=== PATIENT | male | born 1950 | race Caucasian/White ===

== ENCOUNTER 2022-03-03 17:29 | Inpatient (IN) | payer MEDICARE, BC ==
[2022-03-03] MEDS ORDERED: Acetaminophen 325 MG Tab PO ONE (18:42)
[2022-03-03] MEDS ORDERED: Dexamethasone 6 MG TABLET PO ONE (19:20)
[2022-03-03] MEDS ORDERED: REMDESIVIR 200 MG in Sodium Chloride 0.9% 250 ML IV ONE (19:20)
[2022-03-03] MEDS ORDERED: Acetaminophen 325 MG Tab PO PRN (22:03)
[2022-03-03] MEDS: guaiFENesin/Dextromethorphan 100-10 MG/5 ML Soln 5 ML Cup PO PRN (22:30)
[2022-03-03] MEDS: Benzocaine/Cetylpyridinium/Menthol Lozenge MUCMEM PRN (22:30)
[2022-03-04] MEDS ORDERED: Docusate Sodium 100 MG Cap PO PRN (08:03)
[2022-03-04] MEDS ORDERED: oxyCODONE 5 MG Tab PO PRN (08:03)
[2022-03-04] MEDS ORDERED: Morphine 2 MG/ML SYRINGE IVPUSH PRN (08:03)
[2022-03-04] MEDS ORDERED: Albuterol/Ipratropium 3.0-0.5 MG/3 ML Neb Soln NEB PRN (08:03)
[2022-03-04] MEDS ORDERED: Ondansetron 4 MG Tab.DIS PO PRN (08:03)
[2022-03-04] MEDS: Nicotine 14 MG/24 Hr Patch TRDERM SCH (09:00)
[2022-03-04] MEDS: Dexamethasone 6 MG TABLET PO SCH (09:00)
[2022-03-04] MEDS: Enoxaparin 40 MG/0.4 ML Syringe SUBCUT SCH (09:00)
[2022-03-04] MEDS: Benzocaine/Cetylpyridinium/Menthol Lozenge MUCMEM PRN (10:50)
[2022-03-04] MEDS: guaiFENesin/Dextromethorphan 100-10 MG/5 ML Soln 5 ML Cup PO PRN ×2 (10:54→20:32)
[2022-03-04] MEDS: REMDESIVIR 100 MG in Sodium Chloride 0.9% 250 ML IV SCH (18:39)
[2022-03-04] MEDS: Temazepam 15 MG Cap PO PRN (20:32)
[2022-03-05] MEDS: Nicotine 14 MG/24 Hr Patch TRDERM SCH (09:32)
[2022-03-05] MEDS: Enoxaparin 40 MG/0.4 ML Syringe SUBCUT SCH (09:32)
[2022-03-05] MEDS: guaiFENesin/Dextromethorphan 100-10 MG/5 ML Soln 5 ML Cup PO PRN ×2 (09:33→20:21)
[2022-03-05] MEDS: Dexamethasone 6 MG TABLET PO SCH (09:33)
[2022-03-05] MEDS: Benzocaine/Cetylpyridinium/Menthol Lozenge MUCMEM PRN ×2 (09:33→20:21)
[2022-03-05] MEDS: REMDESIVIR 100 MG in Sodium Chloride 0.9% 250 ML IV SCH (18:50)
[2022-03-05] MEDS: Temazepam 15 MG Cap PO PRN (20:21)
[2022-03-06] MEDS: Dexamethasone 6 MG TABLET PO SCH (08:19)
[2022-03-06] MEDS: guaiFENesin/Dextromethorphan 100-10 MG/5 ML Soln 5 ML Cup PO PRN (08:19)
[2022-03-06] MEDS: Enoxaparin 40 MG/0.4 ML Syringe SUBCUT SCH (08:19)
[2022-03-06] MEDS: Benzocaine/Cetylpyridinium/Menthol Lozenge MUCMEM PRN (08:19)
[2022-03-06] MEDS: Nicotine 14 MG/24 Hr Patch TRDERM SCH (08:20)
[2022-03-06] MEDS ORDERED: REMDESIVIR 100 MG in Sodium Chloride 0.9% 250 ML IV SCH (11:00)
== END 2022-03-06 13:30 | disposition home or self-care (01) | DRG 177 ==
LOC: JD.ED 17:29 → JD.MS 19:45
PROVIDERS: ADMIT Internal Medicine; ATTEND Internal Medicine
PROC: XW033E5 Introduction of Remdesivir Anti-infective into Peripheral Vein, Percutaneous Approach, New Technology Group 5 (ICD-10-PCS; principal; 2022-03-03)
PROC: 3E0DX3Z Introduction of Anti-inflammatory into Mouth and Pharynx, External Approach (ICD-10-PCS; 2022-03-03)
DX: U07.1 COVID-19 (principal); H54.7 Unspecified visual loss; J96.01 Acute respiratory failure with hypoxia; J12.82 Pneumonia due to coronavirus disease 2019; F17.290 Nicotine dependence, other tobacco product, uncomplicated
CPT/HCPCS: 36415; 71045; 80053; 84484; 85025; 85379; 86140; 93005; 99285; A9270; J8540; 83735; 85027; 93010; 94640; 94762; 96365; 99284; J0248; J1650; J7050